=== PATIENT | male | born 1975 | race African-American/Black ===

== ENCOUNTER 2017-11-15 11:53 | Emergency (ER) | payer BC ==
[~2017-11-15] VITALS: Ht 180.3 cm; Wt 99.8 kg
--- NOTE | ~2017-11-15 | EKG ---
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
[~2017-11-15 11:53] MED LIST: IBUPROFEN 600600 M1 PO; IBUPROFEN 800800 MG PO; LISINOPRIL10 MG PO; NAPROSYN500 MG PO; NOHOMEMEDICATIONS; NORCO 5-325 TA1 EACH PO; PREDNISONE 20 M20 MG PO
[2017-11-15 12:42] LABS: ABSOLUTE NEUTROPHILS 2.5 thou/uL (1.4-8.2); BASOPHILS 1.4 % (0.0-2.0); EOSINOPHILS 0.9 % (0.0-3.0); HEMATOCRIT 41.8 % (42.0-52.0); HEMOGLOBIN 14.2 gm/dL (14.0-18.0); LYMPHOCYTES 37.6 % (24.0-44.0); MCH 27.4 pg (26.0-34.0); MCHC 33.9 g/dL (28.0-37.0); MCV 80.7 fL (80.0-100.0); MONOCYTES 9.6 % (1.0-8.0); PLATELET COUNT 263 thou/uL (150-400); POLYS 50.5 % (36.0-66.0); RBC 5.18 mil/uL (4.50-6.00)
[2017-11-15 12:53] LABS: ANION GAP 10 mmol/L (7-16); BUN 20 mg/dL (7-18); CALCIUM 8.5 mg/dL (8.5-10.1); CHLORIDE 101 mmol/L (98-107); CO2 26 mmol/L (21-32); CREATININE 1.3 mg/dL (0.7-1.3); GLUCOSE 113 mg/dL (74-106); POTASSIUM 3.7 mmol/L (3.5-5.1); SODIUM 137 mmol/L (136-145)
[2017-11-15 13:03] LABS: TROPONIN-I <0.06 ng/mL (<0.06)
[2017-11-15] MEDS ORDERED: PREDNISONE 20 M20 MG PO (13:30)
[2017-11-15] MEDS ORDERED: PROVENTIL HFA6.7 G1 INH (13:31)
[2017-11-15 13:48] VITALS: BP 135/96
== END 2017-11-15 13:49 | disposition home or self-care (01) ==
LOC: ER 11:53
PROVIDERS: Physician Assistant
DX: J45.901 Unspecified asthma with (acute) exacerbation (principal); Z90.89 Acquired absence of other organs

== ENCOUNTER 2018-10-21 06:39 | Emergency (ER) | payer BC ==
[~2018-10-21] VITALS: Ht 177.8 cm; Wt 99.8 kg
[~2018-10-21 06:39] MED LIST changes: +PROVENTIL HFA6.7 G1 INH
[2018-10-21 06:50] VITALS: BP 138/104
[2018-10-21] MEDS ORDERED: PREDNISONE 20 M20 MG PO (06:53)
[2018-10-21] MEDS ORDERED: COZAAR 25 MG TA25 M1 PO (06:57)
== END 2018-10-21 08:53 | disposition home or self-care (01) ==
LOC: ER 06:39
DX: L25.9 Unspecified contact dermatitis, unspecified cause (principal); J45.909 Unspecified asthma, uncomplicated; Z90.49 Acquired absence of other specified parts of digestive tract

== ENCOUNTER 2019-10-18 05:46 | Emergency (ER) | payer BC ==
[~2019-10-18] VITALS: Ht 177.8 cm; Wt 106.1 kg
[~2019-10-18 05:46] MED LIST changes: +COZAAR 25 MG TA25 M1 PO
[2019-10-18] MEDS ORDERED: LOSARTAN-HCTZ1 EAC3 PO (06:01)
[2019-10-18] MEDS ORDERED: TOPROL XL25 MG PO (06:02)
[2019-10-18] MEDS ORDERED: PRILOSEC OTC20 MG PO (06:29)
[2019-10-18] MEDS ORDERED: ATIVAN0.5 M1 PO (06:29)
[2019-10-18 06:45] VITALS: BP 146/94
== END 2019-10-18 06:41 | disposition home or self-care (01) ==
LOC: ER 05:46
DX: F41.0 Panic disorder [episodic paroxysmal anxiety] (principal); K21.9 Gastro-esophageal reflux disease without esophagitis; J45.909 Unspecified asthma, uncomplicated; Z90.89 Acquired absence of other organs; Z79.899 Other long term (current) drug therapy

== ENCOUNTER 2019-12-02 18:39 | Emergency (ER) | payer BC ==
[~2019-12-02] VITALS: Ht 177.8 cm; Wt 104.3 kg
[~2019-12-02 18:39] MED LIST changes: +ATIVAN0.5 M1 PO; +LOSARTAN-HCTZ1 EAC3 PO; +PRILOSEC OTC20 MG PO; +TOPROL XL25 MG PO
[2019-12-02] MEDS ORDERED: XANAX 0.5 MG0.5 M1 PO (19:59)
[2019-12-02 20:04] VITALS: BP 132/75
== END 2019-12-02 20:17 | disposition home or self-care (01) ==
LOC: ER 18:39
DX: F41.0 Panic disorder [episodic paroxysmal anxiety] (principal); J45.909 Unspecified asthma, uncomplicated; Z90.49 Acquired absence of other specified parts of digestive tract; Z98.890 Other specified postprocedural states; Z79.899 Other long term (current) drug therapy

== ENCOUNTER 2021-04-23 16:21 | Emergency (ER) | payer BC ==
[~2021-04-23] VITALS: Ht 177.8 cm; Wt 99.8 kg
[~2021-04-23 16:21] MED LIST changes: +XANAX 0.5 MG0.5 M1 PO
[2021-04-23 16:28] VITALS: BP 120/82
[2021-04-23] MEDS ORDERED: TESSALON PERLE100 MG PO (18:02)
[2021-04-23] MEDS ORDERED: ZOFRAN ODT4 MG PO (18:02)
[2021-04-23] MEDS ORDERED: ZPAK PO (18:02)
== END 2021-04-23 18:19 | disposition home or self-care (01) ==
LOC: ER 16:21
PROVIDERS: Emergency Medicine
DX: J06.9 Acute upper respiratory infection, unspecified (principal); Z20.822 Contact with and (suspected) exposure to COVID-19; J45.909 Unspecified asthma, uncomplicated; Z98.890 Other specified postprocedural states; Z90.89 Acquired absence of other organs; Z79.899 Other long term (current) drug therapy